=== PATIENT | female | born 1955 | race Caucasian/White ===

== ENCOUNTER 2017-03-12 02:23 | Emergency (ER) | payer OTHER ==
[~2017-03-12] VITALS: Ht 162.6 cm; Wt 115.0 kg
[~2017-03-12 02:23] MED LIST: ALTA2.5C4 PO; FISH100020 OR; MOTI25CH PO
[2017-03-12 02:28] VITALS: BP 178/90; PULSE 91; RESP 14; TEMP 97.9; O2SAT 98
[2017-03-12] MEDS ORDERED: cloNIDine HCL 0.1 MG TAB PO ONE (02:45)
[2017-03-12] MEDS ORDERED: ACETAMINOPHEN 325 MG TAB PO ONE (02:45)
[2017-03-12] MEDS ORDERED: SODIUM CHLORIDE 0.9% FLUSH 10 ML FLUSH IVF PRN (02:45)
[2017-03-12] MEDS ORDERED: METOCLOPRAMIDE HCL 10 MG/2 ML VIAL IV PUSH ONE (02:45)
--- NOTE | 2017-03-12 02:47 | PD ---
HPI Chief Complaint: elevated blood pressure readings, headache Time Seen by Provider: 02:32 Travel History International Travel<30 days: No Contact w/Intl Traveler<30days: No Traveled to known affect area: No History of Present Illness HPI 61-year-old female with history of hypertension on ramipril, here for evaluation of elevated blood pressure and headache. The patient reports upper respiratory symptoms for last week. She took Robitussin DM 2 days ago as well as yesterday and noticed that she was developing a headache and lightheadedness and when she checked her blood pressure was elevated. She contacted her primary care physician who advised that she double her dose of ramipril and discontinue the Robitussin. Patient reports that she woke up in the middle the night tonight with a frontal headache that she rates as 7 out of 10, not the worse headache of her life, rated as pressure. The patient also has some sinus pressure and nasal congestion. She took her blood pressure and it was 150/100 at home. She became concerned and presented to the emergency department for further evaluation. There are no paresthesias or motor deficits. No visual disturbances. No chest pain or dyspnea. PFSH Past Medical History Diminished Hearing: No Hypertension: Yes Past Surgical History Abdominal Surgery: Yes (GALL BLADDER) Gynecologic Surgery: Yes Hysterectomy: Yes (1985) Tonsillectomy: Yes Other Surgery: Yes (CYST REMOVED) Social History Alcohol Use: No Tobacco Use: No Substance Use: No Allergies-Medications (Allergen,Severity, Reaction): Coded Allergies: No Known Allergies (Unverified Allergy, Unknown, 03/12/17) azithromycin (Verified Adverse Reaction, Intermediate, Nausea/Vomiting, 03/12/17) Reported Meds & Prescriptions Reported Meds & Active Scripts Active Reported Multi-Vitamin Daily (Multiple Vitamin) 1 Tab Tab 1 Tab PO DAILY [place]-3 Fish Oil/Vitamin (Fish Oil-Cholecalciferol) 1,000-1,000 Mg Cap 1 Cap PO DAILY Ramipril 2.5 Mg Cap 2.5 Mg PO DAILY Review of Systems Except as stated in HPI: all other systems reviewed are Neg Physical Exam Narrative GENERAL: Well-developed, well-nourished, comfortable, no apparent distress. GCS 15. SKIN: Focused skin assessment warm/dry. HEAD: Atraumatic. Normocephalic. EYES: Pupils equal and round. No scleral icterus. No injection or drainage. ENT: No nasal bleeding or discharge. Mucous membranes pink and moist. NECK: Trachea midline. No JVD. CARDIOVASCULAR: Regular rate and rhythm. Distal pulses brisk and equal bilaterally. RESPIRATORY: No accessory muscle use. Clear to auscultation. Breath sounds equal bilaterally. GASTROINTESTINAL: Abdomen soft, non-tender, nondistended. MUSCULOSKELETAL: No obvious deformities. No clubbing. No cyanosis. No edema. NEUROLOGICAL: Awake and alert. No obvious cranial nerve deficits. Motor grossly within normal limits. Normal speech. No focal deficit. PSYCHIATRIC: Appropriate mood and affect; insight and judgment normal. Data Data Last Documented VS Vital Signs Date Time Temp Pulse Resp B/P (MAP) Pulse Ox O2 Delivery O2 Flow Rate FiO2 03/12/17 03:34 78 16 156/86 (109) 98 Room Air 03/12/17 02:28 97.9 Orders Orders Electrocardiogram (03/12/17 02:38) Ckmb (Isoenzyme) Profile (03/12/17 02:38) Complete Blood Count With Diff (03/12/17 02:38) Comprehensive Metabolic Panel (03/12/17 02:38) Prothrombin Time / Inr (Pt) (03/12/17 02:38) Act Partial Throm Time (Ptt) (03/12/17 02:38) Troponin I (03/12/17 02:38) Ecg Monitoring (03/12/17 02:38) Iv Access Insert/Monitor (03/12/17 02:38) Oximetry (03/12/17 02:38) Sodium Chloride 0.9% Flush (Ns Flush) (03/12/17 02:45) Influenzae A/B Antigen (03/12/17 02:38) Ct Brain W/O Iv Contrast(Rout) (03/12/17 ) Metoclopramide Inj (Reglan Inj) (03/12/17 02:45) Acetaminophen (Tylenol) (03/12/17 02:45) Clonidine (Catapres) (03/12/17 02:45) CKMB (03/12/17 03:28) CKMB% (03/12/17 03:28) Labs Laboratory Tests Test 03/12/17 03:28 White Blood Count 9.7 TH/MM3 Red Blood Count 4.66 MIL/MM3 Hemoglobin 13.5 GM/DL Hematocrit 42.4 % Mean Corpuscular Volume 91.1 FL Mean Corpuscular Hemoglobin 29.1 PG Mean Corpuscular Hemoglobin Concent 31.9 % Red Cell Distribution Width 13.2 % Platelet Count 322 TH/MM3 Mean Platelet Volume 9.1 FL Neutrophils (%) (Auto) 54.0 % Lymphocytes (%) (Auto) 37.4 % Monocytes (%) (Auto) 5.9 % Eosinophils (%) (Auto) 2.2 % Basophils (%) (Auto) 0.5 % Neutrophils # (Auto) 5.3 TH/MM3 Lymphocytes # (Auto) 3.6 TH/MM3 Monocytes # (Auto) 0.6 TH/MM3 Eosinophils # (Auto) 0.2 TH/MM3 Basophils # (Auto) 0.0 TH/MM3 CBC Comment DIFF FINAL Differential Comment Prothrombin Time 10.0 SEC Prothromb Time International Ratio 1.0 RATIO Activated Partial Thromboplast Time 25.0 SEC Blood Urea Nitrogen 12 MG/DL Creatinine 0.91 MG/DL Random Glucose 120 MG/DL Total Protein 8.3 GM/DL Albumin 3.7 GM/DL Calcium Level 9.3 MG/DL Alkaline Phosphatase 92 U/L Aspartate Amino Transf (AST/SGOT) 22 U/L Alanine Aminotransferase (ALT/SGPT) 32 U/L Total Bilirubin 0.3 MG/DL Sodium Level 139 MEQ/L Potassium Level 3.8 MEQ/L Chloride Level 105 MEQ/L Carbon Dioxide Level 26.2 MEQ/L Anion Gap 8 MEQ/L Estimat Glomerular Filtration Rate 63 ML/MIN Total Creatine Kinase 101 U/L Troponin I LESS THAN 0.02 NG/ML MDM Medical Decision Making Medical Screen Exam Complete: Yes Emergency Medical Condition: Yes Interpretation(s) EKG: Sinus, rate 77, leftward axis, normal intervals, no acute ischemic abnormality. Differential Diagnosis Hypertensive crisis, elevated blood pressure reading, medication induced elevated blood pressure, sinusitis, acute intracranial abnormality Narrative Course Initial vital signs show heart rate 91, blood pressure 178/90, pulse ox 98% on room air, oral temp of 97.9F. Repeat vital signs show heart rate 78, blood pressure 156/86, pulse ox 98% on room air. Repeat blood pressure is 138/80. CBC is unremarkable. CMP is unremarkable. Cardiac enzymes are negative. CT head: Normal exam. Influenza is negative. The patient is not displaying any signs or symptoms of hypertensive crisis. She was given a dose of Tylenol and IV Reglan and states her headache is improved. There is no nuchal rigidity on exam. I do not believe that her symptoms are consistent with SAH/meningitis/encephalitis. Blood pressure improved to 138/80 when her pain improved. She was not given any antihypertensives in the emergency department. Patient and the patient's significant other were made aware of all findings. At this point she is stable for discharge home with outpatient follow-up with her primary care physician in the next 1-2 days. She was advised on when to return to the emergency department. The patient verbalizes understanding and is happy with this plan. Diagnosis Primary Impression: Elevated blood pressure reading Additional Impression: Cephalgia Qualified Codes: R51 - Headache Referrals: Herlinda Najera MD 1 day Additional Instructions: Follow-up with your primary care physician in the next 1-2 days. Take your medications as prescribed. Return to the emergency department for worsening symptoms or any other concerns. Disposition: 01 DISCHARGE HOME Condition: Stable Alexx Emerson MD Mar 12, 2017 02:47
[2017-03-12] MEDS ORDERED: OMEGCAP PO (03:02)
[2017-03-12] MEDS ORDERED: MULT-65 PO (03:02)
[2017-03-12] MEDS ORDERED: RAMI2.5C PO (03:02)
[2017-03-12 03:04] VITALS: RESP 16; O2SAT 96
--- NOTE | 2017-03-12 03:26 | RADRPT ---
EXAM DATE/TIME: 03/12/2017 03:06 [facility] COMPARISON: CT BRAIN W/O CONTRAST, September 17, 2012, 9:10. INDICATIONS : Cephalgia. RADIATION DOSE: 61.62 CTDIvol (mGy) MEDICAL HISTORY : Hypertension. SURGICAL HISTORY : None. ENCOUNTER: Initial ACUITY: 1 day PAIN SCALE: 5/10 LOCATION: cranial TECHNIQUE: Multiple contiguous axial images were obtained of the head. Using automated exposure control and adj ustment of the mA and/or kV according to patient size, radiation dose was kept as low as reasonably a chievable to obtain optimal diagnostic quality images. DICOM format image data is available electro nically for review and comparison. FINDINGS: CEREBRUM: The ventricles are normal for age. No evidence of midline shift, mass lesion, hemorrhage or acute in farction. No extra-axial fluid collections are seen. POSTERIOR FOSSA: The cerebellum and brainstem are intact. The 4th ventricle is midline. The cerebellopontine angle i s unremarkable. EXTRACRANIAL: The visualized portion of the orbits is intact. SKULL: The calvaria is intact. No evidence of skull fracture. CONCLUSION: Normal examination. Niko Tirado Jr., MD on March 12, 2017 at 3:23 Board Certified Radiologist. This report was verified electronically.
[2017-03-12 03:34] VITALS: BP 156/86; PULSE 78; RESP 16; O2SAT 98
[2017-03-12 03:34] LABS: AUTOMATED NEUTROPHIL # 5.3 TH/MM3 (1.8-7.7); BASOPHIL % 0.5 % (0.0-2.0); EOSINOPHIL # 0.2 TH/MM3 (0-0.4); EOSINOPHIL % 2.2 % (0.0-4.0); HEMATOCRIT 42.4 % (35.0-46.0); HEMOGLOBIN 13.5 GM/DL (11.6-15.3); LYMPH % 37.4 % (9.0-44.0); LYMPHOCYTE # 3.6 TH/MM3 (1.0-4.8); MEAN CELL VOLUME 91.1 FL (80.0-100.0); MEAN CORPUSCULAR HEMOGLOBIN 29.1 PG (27.0-34.0); MEAN CORPUSCULAR HGB CONC 31.9 % (32.0-36.0); MEAN PLATELET VOLUME 9.1 FL (7.0-11.0); MONO % 5.9 % (0.0-8.0); MONOCYTE # 0.6 TH/MM3 (0-0.9); PLATELET COUNT 322 TH/MM3 (150-450); RED BLOOD COUNT 4.66 MIL/MM3 (4.00-5.30); RED CELL DISTRIBUTION WIDTH 13.2 % (11.6-17.2); WHITE BLOOD COUNT 9.7 TH/MM3 (4.0-11.0)
[2017-03-12 03:42] LABS: CHLORIDE 105 MEQ/L (98-107); SODIUM (NA) 139 MEQ/L (136-145)
[2017-03-12 03:45] LABS: CALCIUM 9.3 MG/DL (8.5-10.1)
[2017-03-12 03:46] LABS: ALBUMIN 3.7 GM/DL (3.4-5.0); BICARBONATE 26.2 MEQ/L (21.0-32.0); BLOOD UREA NITROGEN 12 MG/DL (7-18); GLUCOSE,RANDOM 120 MG/DL (74-106)
[2017-03-12 03:49] LABS: ALT (GPT) 32 U/L (10-53); AST (GOT) 22 U/L (15-37); CREATININE 0.91 MG/DL (0.50-1.00); GLOMERULAR FILTRATION RATE 63 ML/MIN (>89)
[2017-03-12 03:51] LABS: TOTAL BILIRUBIN ADULT 0.3 MG/DL (0.2-1.0); TOTAL PROTEIN 8.3 GM/DL (6.4-8.2)
[2017-03-12 03:52] LABS: ALKALINE PHOSPHATASE 92 U/L (45-117)
[2017-03-12 03:54] LABS: TROPONIN I LESS THAN 0.02 NG/ML (0.02-0.05)
[2017-03-12 04:18] VITALS: BP 138/83
[2017-03-12 04:19] VITALS: RESP 16
--- NOTE | 2017-03-13 23:23 | EKG ---
Date Performed: 03/12/2017 Time Performed: 02:52:53 PTAGE: 61 years EKG: Sinus rhythm MARKED LEFT AXIS DEVIATION ABNORMAL ECG PREVIOUS TRACING : 09/17/2012 08.29 DOCTOR: Doris Garcia Interpretating Date/Time 03/13/2017 23:21:54
== END 2017-03-12 04:24 | disposition home or self-care (01) ==
LOC: PHED 02:23
DX: I16.9 Hypertensive crisis, unspecified (principal); R51 Headache; R94.31 Abnormal electrocardiogram [ECG] [EKG]; Z79.899 Other long term (current) drug therapy; Z88.1 Allergy status to other antibiotic agents
CPT/HCPCS: 70450; 80053; 82550; 82552; 84484; 85025; 85610; 85730; 87804; 93005; 96374; 99285; J2765

== ENCOUNTER → 2017-08-13 | Outpatient (CLI) | payer OTHER ==
[~2017-08-13] MED LIST changes: -ALTA2.5C4 PO; -FISH100020 OR; -MOTI25CH PO; +MULT-65 PO; +OMEGCAP PO; +RAMI2.5C PO
[2017-08-13 10:52] LABS: CHOLESTEROL/ HDL RATIO 3.26 RATIO; HDL CHOLESTEROL 51.4 MG/DL (40.0-60.0)
== END ==
LOC: PLAB 07:59
PROVIDERS: ATTEND Family Medicine
DX: I10 Essential (primary) hypertension (principal); R53.83 Other fatigue; E78.2 Mixed hyperlipidemia
CPT/HCPCS: 36415; 80061; 86141